=== PATIENT | male | born 1980 ===

== ENCOUNTER 2023-02-16 21:36 | Emergency (ER) | payer BC ==
[2023-02-16] MEDS ORDERED: Albuterol/Ipratropium 3.0-0.5 MG/3 ML Neb Soln ONE (21:39)
[2023-02-16] MEDS ORDERED: predniSONE 10 MG Tab PO ONE (21:56)
[2023-02-16] MEDS ORDERED: Albuterol/Ipratropium 3.0-0.5 MG/3 ML Neb Soln NEB ONE (22:05)
== END 2023-02-16 22:21 | disposition home or self-care (01) ==
LOC: MW.ED 21:36
DX: J45.901 Unspecified asthma with (acute) exacerbation (principal); Z79.899 Other long term (current) drug therapy
CPT/HCPCS: 99284; A9270-GY; J7620-GY